=== PATIENT | female | born 1980 | race Caucasian/White ===

== ENCOUNTER 2017-12-23 10:01 | Outpatient (CLI) | payer OTHER ==
[~2017-12-23 10:01] MED LIST: CEFTIN250 MG PO; DOLOGEN CAPLET1 EACH PO
== END 2017-12-23 11:10 | disposition home or self-care (01) ==
LOC: SONOGRAMA 10:01
DX: E04.1 Nontoxic single thyroid nodule (principal)

== ENCOUNTER 2018-01-05 07:30 | Outpatient (CLI) | payer OTHER | END 2018-01-05 07:32 | disposition home or self-care (01) | LOC: NUCLEAR 07:30 | DX: E04.1 Nontoxic single thyroid nodule (principal) | CPT/HCPCS: A9531; 78012 ==

== ENCOUNTER 2018-01-05 09:49 | Outpatient (CLI) | payer OTHER | END 2018-01-05 09:57 | disposition home or self-care (01) | LOC: LAB 09:49 | DX: Z32.00 Encounter for pregnancy test, result unknown (principal) ==

== ENCOUNTER 2018-01-06 09:02 | Outpatient (CLI) | payer OTHER | END 2018-01-06 09:08 | disposition home or self-care (01) | LOC: NUCLEAR 09:02 | DX: E04.1 Nontoxic single thyroid nodule (principal) | CPT/HCPCS: 78013; A9512 ==

== ENCOUNTER → 2018-03-24 | Emergency (ER) | payer OTHER ==
[~2018-03-24] VITALS: Ht 160 cm; Wt 62.6 kg
[~2018-03-24] MED LIST changes: +MINOCIN100 MG; +SINGULAIR 10MG10 MG
== END | disposition home or self-care (01) ==
LOC: ER 18:40
DX: J32.8 Other chronic sinusitis (principal)

== ENCOUNTER 2019-05-10 08:03 | Inpatient (IN) | payer OTHER ==
[~2019-05-10] VITALS: Ht 160 cm; Wt 63.5 kg
[2019-05-10] MEDS ORDERED: MULTIVITAMINS1 EAC9 PO (08:55)
[2019-05-10] MEDS ORDERED: IRON236 MG PO (08:55)
[2019-05-19] MEDS ORDERED: IBUPROFEN800 MG PO (06:44)
[2019-05-19] MEDS ORDERED: GABAPENTIN600 MG PO (06:44)
[2019-05-19] MEDS ORDERED: CEFADROXIL500 MG PO (06:44)
== END 2019-05-19 07:47 | disposition home or self-care (01) | DRG 743 ==
LOC: O/R 05-17 05:30 → OB/GYN 05-17 05:30 → SURH 05-17 08:30 → OB/GYN 05-17 10:30
PROVIDERS: ADMIT Obstetrics & Gynecology
PROC: 0UT70ZZ Resection of Bilateral Fallopian Tubes, Open Approach (ICD-10-PCS; 2019-05-17)
PROC: 0UT90ZZ Resection of Uterus, Open Approach (ICD-10-PCS; principal; 2019-05-17 10:00)
DX: N93.8 Other specified abnormal uterine and vaginal bleeding (principal); D25.1 Intramural leiomyoma of uterus; D25.2 Subserosal leiomyoma of uterus; N72 Inflammatory disease of cervix uteri

== ENCOUNTER 2020-05-11 09:33 | Outpatient (CLI) | payer OTHER ==
[~2020-05-11 09:33] MED LIST changes: +CEFADROXIL500 MG PO; +GABAPENTIN600 MG PO; +IBUPROFEN800 MG PO; +IRON236 MG PO; +MULTIVITAMINS1 EAC9 PO
== END 2020-05-11 09:39 | disposition home or self-care (01) ==
LOC: SONOGRAMA 09:33
PROVIDERS: ATTEND Pathology Anatomic Pathology
DX: E04.2 Nontoxic multinodular goiter (principal)

== ENCOUNTER 2024-01-29 11:40 | Outpatient (CLI) | payer OTHER | END 2024-01-29 11:41 | disposition home or self-care (01) | LOC: SONOGRAMA 11:40 | PROVIDERS: ATTEND Pathology Anatomic Pathology & Clinical Pathology | DX: D34 Benign neoplasm of thyroid gland (principal); E07.89 Other specified disorders of thyroid; E04.2 Nontoxic multinodular goiter ==